=== PATIENT | female | born 1950 | race Caucasian/White ===

== ENCOUNTER 2021-07-20 11:15 | Emergency (ER) | payer MEDICARE, MEDICAID ==
[~2021-07-20] VITALS: Ht 167.6 cm; Wt 90.7 kg
[~2021-07-20 11:15] MED LIST: ALLOPURINOL 10100 M1 PO; AVAPRO300 MG PO; CLOBETASOL PROP60 G3 TOP; CLONAZEPAM 1 MG1 M1 PO; DALIRESP500 MCG PO; DOXYCYCLINE HYC50 MG PO; HYDROCODON-ACE1 EA12 PO; IRON325 PO; JANUMET XR 50-1 EAC1 PO; LASIX 20 MG TAB20 MG PO; LIPITOR 20 MG T20 M1 PO; MOBIC15 MG PO; NAPROSYN500 MG PO; NORVASC5 MG PO; PREDNISONE 20 M20 MG PO; PREDNISONE 5 MG5 M1 PO; PROTONIX40 M1 PO; PROVENTIL HFA6.7 G1 INH; REQUIP 1 MG TABL1 M1 PO; SYNTHROID175 MCG PO; TOPROL XL25 MG PO; TRAMADOL 50 MG50 MG PO
[2021-07-20] MEDS ORDERED: ASA81BEC PO (11:40)
[2021-07-20] MEDS ORDERED: LANTUS SUBQ (11:42)
[2021-07-20] MEDS ORDERED: HUMALOG100 UNIT/1 SUBQ (11:42)
[2021-07-20] MEDS ORDERED: LIDODERM1 EACH TOP (11:43)
[2021-07-20] MEDS ORDERED: MAGNESIUM250 M1 PO (11:43)
[2021-07-20] MEDS ORDERED: PROAIR HFA8.5 GM INH (11:44)
[2021-07-20] MEDS ORDERED: KLOR-CON 10 ER10 MEQ PO (11:44)
[2021-07-20] MEDS ORDERED: SPIRONOLACTONE25 MG PO (11:45)
[2021-07-20 11:59] LABS: ABSOLUTE BASOPHILS 0.1 thou/uL (0.0-0.2); ABSOLUTE EOSINOPHILS 0.4 thou/uL (0.0-0.7); ABSOLUTE LYMPHOCYTES 1.6 thou/uL (0.8-5.3); ABSOLUTE MONOCYTES 0.5 thou/uL (0.0-1.2); BASOPHILS 0.7 %; EOSINOPHILS 4.8 %; HEMATOCRIT 37.2 % (37.0-47.0); HEMOGLOBIN 12.4 gm/dL (12.0-15.0); LYMPHOCYTES 18.7 %; MCH 30.2 pg (26.0-34.0); MCHC 33.5 g/dL (28.0-37.0); MCV 90.2 fL (80.0-100.0); MONOCYTES 6.1 %; MPV 7.3 fl. (7.2-11.1); NUCLEATED RBCS 0 /100WBC; PLATELET COUNT* 280 thou/uL (150-400); POLYS 69.7 %; RBC 4.12 mil/uL (4.20-5.00); RDW-CV 16.1 % (10.5-14.5); WBC 8.5 thou/uL (4.0-11.0)
[2021-07-20 12:17] LABS: CALCIUM 8.6 mg/dL (8.5-10.1); POTASSIUM 4.2 mmol/L (3.5-5.1)
[2021-07-20 12:21] LABS: TOTAL BILIRUBIN 0.2 mg/dL (<0.1-1.0); TOTAL PROTEIN 6.8 g/dL (6.4-8.2)
[2021-07-20 12:41] LABS: URINE BILIRUBIN NEGATIVE (Negative); URINE BLOOD NEGATIVE (Negative); URINE CLARITY CLEAR; URINE COLOR YELLOW; URINE GLUCOSE-RANDOM 2+ (Negative); URINE KETONES NEGATIVE (Negative); URINE LEUKOCYTES-REFLEX NEGATIVE (Negative); URINE PROTEIN NEGATIVE (Negative); URINE SPECIFIC GRAVITY 1.025 (1.005-1.030); URINE UROBILINOGEN 0.2 E.U./dl (0.2-1.0)
[2021-07-20 12:45] LABS: URINE NITRITE-REFLEX POSITIVE (Negative)
[2021-07-20 12:49] LABS: SQUAMOUS NONE SEEN /LPF (0-3)
[2021-07-20 12:50] LABS: BACTERIA-REFLEX >30 Many /HPF (None Seen); CASTS None Seen /LPF (None Seen); MUCUS None Seen strn/LPF (None Seen); URINE RBC 0-2 Rare /HPF (0-2); URINE WBC-REFLEX 6-15 Few /HPF (0-5)
[2021-07-20 13:15] LABS: SGOT 14.4 U/L (15-37)
[2021-07-20 14:55] VITALS: BP 119/54
--- NOTE | 2021-07-20 15:03 | EKG ---
[place] [address] ELECTROCARDIOGRAM REPORT Name: ZAKI BORJAS Room: [facility]#: [id number] Admission: 07/20/21 Attend Phys: Discharge: 07/20/21 Date of : 50 Date of Service: 07/20/21 1152 Report #: [id number] THIS REPORT FOR: //name// [facility] ED Test Date: 2021-07-20 Test Time: 11:52:11 Pat Name: ZAKI BORJAS Department: Room: Gender: F Etl Bi Developer: : 1950 Requested By: Kyle Harrison Order Number: [id number] MD: Mitchell Barragan Measurements Intervals [place] Rate: 95 P: 54 PA: 141 QRS: 33 QRSD: 85 T: 51 QT: 336 QTc: 423 Interpretive Statements Sinus rhythm low voltage Probable left atrial enlargement Baseline wander in lead(s) II,III,aVF No previous ECG available for comparison Electronically Signed On 07-20-2021 15:03:05 CDT by Mitchell Barragan [email or web address] <ELECTRONICALLY SIGNED> By: Mitchell Barragan MD, [facility] 07/20/21 1503 1152 1152 Mitchell Barragan MD, [facility] /EPI
== END 2021-07-20 14:57 | disposition short-term general hospital (02) ==
LOC: M.ERS 11:15
PROVIDERS: Family Medicine
DX: I63.9 Cerebral infarction, unspecified (principal); Z20.822 Contact with and (suspected) exposure to COVID-19; R53.1 Weakness; E11.9 Type 2 diabetes mellitus without complications; J44.9 Chronic obstructive pulmonary disease, unspecified; I11.0 Hypertensive heart disease with heart failure; I50.9 Heart failure, unspecified; E78.00 Pure hypercholesterolemia, unspecified; E03.9 Hypothyroidism, unspecified; F17.210 Nicotine dependence, cigarettes, uncomplicated; Z79.82 Long term (current) use of aspirin; Z79.4 Long term (current) use of insulin; Z79.899 Other long term (current) drug therapy; Z87.891 Personal history of nicotine dependence

== ENCOUNTER 2021-09-27 18:20 | Emergency (ER) | payer MEDICARE, MEDICAID ==
[~2021-09-27] VITALS: Ht 167.6 cm; Wt 90.7 kg
--- NOTE | ~2021-09-27 | EMS ---
[address] [address] EMS Patient Care Report Name: ZAKI [facility]ORJAS [id number] Admission: 09/27/21 Attend Phys: Discharge: Date of : 50 Report #: [id number] THIS REPORT FOR: //name// Report Transmitted: 09/27/2021 18:13 EMS Care Summary [facility] Incident 22-0010 @ 09/27/2021 17:33 Incident Location [address] [place] [address] Patient ZAKI BORJAS Female, 71 Years 1950 Patient Address [address] [place] [address] Patient History Congestive Heart Failure (CHF),Chronic Obstructive Pulmonary Disease (COPD),Abdominal Aortic Aneurysm,Sleep Apnea,Narcolepsy, Patient Allergies No known allergies, Patient Medications Hydrocodone, Spironolactone, Allopurinol, Potassium, Metoprolol, Atorvastatin, Humalog, Magnesium Oxide, Levothyroxine, Lantus, Amitriptyline, Trazodone, Proair, Clonazepam, Flexeril, Lidocaine, ASA, Ropinirole, Chief Complaint Left calf pain Disposition Transported No Lights/[place] Dispatch Reason No Other Appropriate Choice Transported To [address] [address] EMS Patient Care Report Name: ZAKI BORJAS Room: [facility]#: [id number] Admission: 09/27/21 Attend Phys: Discharge: Date of : 50 Report #: [id number] Narrative Med 1 and Utility 1 were dispatched for a [age] year old female c/o left lower calf pain that started today. Upon arrival, patient was sitting on the couch with her bag packed. Patient c/o left leg pain upon assessment patient has redness, swelling & tenderness on her left calf. Patient rates her pain at a 9/10. Patient reported that she walk to the stretcher and we secured her via seatbelts and moved to the ambulance without incident. Med 1 went en route to [facility]. Patients vitals were monitored en route & remained stable. Patient is on Oxygen all the time due to COPD at 2 lpm via NC. I continued Oxygen on the patient through out transport. Patient reported she took her Hydrocodone prior to EMS arrival. Hospital report was given via radio with no questions or orders received or requested. Med 1 arrived at the hospital. Patient was moved into the ER Triage waiting room via stretcher. Patient was transferred to a wheelchair and patient report was given to ER Triage Nurse and patient care was transferred. Med 1 returned back into service. [id number] KShook Initial Vitals @17:48P: 84,R: 20,BP: 154/86,GCS: 15,SpO2: 98,Revised Trauma: 12, @18:02P: 86,R: 20,BP: 148/80,GCS: 15,SpO2: 98,Revised Trauma: 12, Impression Pain (Non-Traumatic) Timeline 17:33,Call Received 17:33,Dispatched 17:33,En Route 17:35,On Scene 17:36,At Patient 17:47,Depart Scene 17:48,BP: 154/86 M,PULSE: 84,RR: 20 R,SPO2: 98 Ox,ETCO2: ,BG: ,PAIN: ,GCS: 15, 18:02,BP: 148/80 M,PULSE: 86,RR: 20 R,SPO2: 98 Ox,ETCO2: ,BG: ,PAIN: ,GCS: 15, 18:08,At Destination 18:37,Call Closed 18:37,In District Disclaimer v1.1 Copyright 2021 [employer], [place] [address] EMS Patient Care Report Name: ZAKI BORJAS HYACINTH Room: [facility]#: [id number] Admission: 09/27/21 Attend Phys: Discharge: Date of : 50 Report #: [id number] This EMS Care Summary contains data elements from the applicable legal record (which may be displayed differently). It is designed to provide pertinent information for the following purposes: continuity of care, clinical quality, and state data reporting. The complete legal record is available to ED staff and administrators of the receiving hospital in [employer]'s Patient Tracker. All data is provided "as is."
--- NOTE | ~2021-09-27 | EMS ---
[address] [address] EMS Patient Care Report Name: ZAKI BORJAS [id number] Admission: 09/27/21 Attend Phys: Discharge: Date of : 50 Report #: [id number] THIS REPORT FOR: //name// Report Transmitted: 09/27/2021 19:15 EMS Care Summary [facility] Incident 22-0010 @ 09/27/2021 17:33 Incident Location [address] [place] [address] Patient ZAKI BORJAS Female, 71 Years 1950 Patient Address [address] [place] [address] Patient History Congestive Heart Failure (CHF),Chronic Obstructive Pulmonary Disease (COPD),Abdominal Aortic Aneurysm,Sleep Apnea,Narcolepsy, Patient Allergies No known allergies, Patient Medications Hydrocodone, Spironolactone, Allopurinol, Potassium, Metoprolol, Atorvastatin, Humalog, Magnesium Oxide, Levothyroxine, Lantus, Amitriptyline, Trazodone, Proair, Clonazepam, Flexeril, Lidocaine, ASA, Ropinirole, Chief Complaint Left calf pain Disposition Transported No Lights/[place] Dispatch Reason No Other Appropriate Choice Transported To [address] [address] EMS Patient Care Report Name: ZAKI BORJAS Room: [facility]#: [id number] Admission: 09/27/21 Attend Phys: Discharge: Date of : 50 Report #: [id number] Narrative Med 1 and Utility 1 were dispatched for a [age] year old female c/o left lower calf pain that started today. Upon arrival, patient was sitting on the couch with her bag packed. Patient c/o left leg pain upon assessment patient has redness, swelling & tenderness on her left calf. Patient rates her pain at a 9/10. Patient reported that she walk to the stretcher and we secured her via seatbelts and moved to the ambulance without incident. Med 1 went en route to [facility]. Patients vitals were monitored en route & remained stable. Patient is on Oxygen all the time due to COPD at 2 lpm via NC. I continued Oxygen on the patient through out transport. Patient reported she took her Hydrocodone prior to EMS arrival. Hospital report was given via radio with no questions or orders received or requested. Med 1 arrived at the hospital. Patient was moved into the ER Triage waiting room via stretcher. Patient was transferred to a wheelchair and patient report was given to ER Triage Nurse and patient care was transferred. Med 1 returned back into service. [id number] KShook Initial Vitals @17:48P: 84,R: 20,BP: 154/86,GCS: 15,SpO2: 98,Revised Trauma: 12, @18:02P: 86,R: 20,BP: 148/80,GCS: 15,SpO2: 98,Revised Trauma: 12, Impression Pain (Non-Traumatic) Timeline 17:33,Call Received 17:33,Dispatched 17:33,En Route 17:35,On Scene 17:36,At Patient 17:47,Depart Scene 17:48,BP: 154/86 M,PULSE: 84,RR: 20 R,SPO2: 98 Ox,ETCO2: ,BG: ,PAIN: ,GCS: 15, 18:02,BP: 148/80 M,PULSE: 86,RR: 20 R,SPO2: 98 Ox,ETCO2: ,BG: ,PAIN: ,GCS: 15, 18:08,At Destination 18:37,Call Closed 18:37,In District Disclaimer v1.1 Copyright 2021 [employer], [place] [address] EMS Patient Care Report Name: ZAKI BORJAS HYACINTH Room: [facility]#: [id number] Admission: 09/27/21 Attend Phys: Discharge: Date of : 50 Report #: [id number] This EMS Care Summary contains data elements from the applicable legal record (which may be displayed differently). It is designed to provide pertinent information for the following purposes: continuity of care, clinical quality, and state data reporting. The complete legal record is available to ED staff and administrators of the receiving hospital in [facility]'s Patient Tracker. All data is provided "as is."
[~2021-09-27 18:20] MED LIST changes: +ASA81BEC PO; +HUMALOG100 UNIT/1 SUBQ; +KLOR-CON 10 ER10 MEQ PO; +LANTUS SUBQ; +LIDODERM1 EACH TOP; +MAGNESIUM250 M1 PO; +PROAIR HFA8.5 GM INH; +SPIRONOLACTONE25 MG PO
[2021-09-27] MEDS ORDERED: AUGMENTIN 875-1 EACH PO (20:09)
[2021-09-27 20:18] VITALS: BP 140/66
== END 2021-09-27 20:18 | disposition home or self-care (01) ==
LOC: M.ERS 18:20
DX: S80.812A Abrasion, left lower leg, initial encounter (principal); L03.116 Cellulitis of left lower limb; L08.9 Local infection of the skin and subcutaneous tissue, unspecified; E11.9 Type 2 diabetes mellitus without complications; J44.9 Chronic obstructive pulmonary disease, unspecified; E78.00 Pure hypercholesterolemia, unspecified; I11.0 Hypertensive heart disease with heart failure; I50.9 Heart failure, unspecified; M19.90 Unspecified osteoarthritis, unspecified site; E03.9 Hypothyroidism, unspecified; Z86.711 Personal history of pulmonary embolism; Z79.899 Other long term (current) drug therapy; Z79.82 Long term (current) use of aspirin; Z79.4 Long term (current) use of insulin; Z91.09 Other allergy status, other than to drugs and biological substances; Z87.891 Personal history of nicotine dependence; W55.03XA Scratched by cat, initial encounter; Y93.89 Activity, other specified; Y92.89 Other specified places as the place of occurrence of the external cause; Y99.8 Other external cause status

== ENCOUNTER 2021-10-06 06:14 | Inpatient (IN) | payer MEDICARE, MEDICAID ==
[~2021-10-06] VITALS: Ht 167.6 cm; Wt 93.4 kg
[~2021-10-06 06:14] MED LIST changes: +AUGMENTIN 875-1 EACH PO; +SYNTHROID175 MC1 PO; -SYNTHROID175 MCG PO
[2021-10-06 06:26] VITALS: BP 118/88
[2021-10-06 06:53] LABS: BE 5.9 mmol/L (-2 to +3); pH 7.367 (7.340-7.450)
[2021-10-06 06:59] LABS: PCO2 58.7 mmHg (35.0-45.0); PO2 50.6 mmHg (75.0-100.0)
[2021-10-06 07:00] LABS: ABSOLUTE LYMPHOCYTES 1.3 thou/uL (0.8-5.3); HEMOGLOBIN 12.3 gm/dL (12.0-15.0); NUCLEATED RBCS 0 /100WBC; RBC 4.16 mil/uL (4.20-5.00)
[2021-10-06 07:02] LABS: ABSOLUTE BASOPHILS 0.1 thou/uL (0.0-0.2); ABSOLUTE EOSINOPHILS 0.3 thou/uL (0.0-0.7); ABSOLUTE MONOCYTES 0.5 thou/uL (0.0-1.2); ABSOLUTE NEUTROPHILS 6.3 thou/uL (1.6-8.1); BASOPHILS 0.6 %; EOSINOPHILS 3.1 %; HEMATOCRIT 37.4 % (37.0-47.0); MCH 29.6 pg (26.0-34.0); MCHC 32.9 g/dL (28.0-37.0); MCV 89.9 fL (80.0-100.0); MONOCYTES 5.7 %; MPV 7.4 fl. (7.2-11.1); PLATELET COUNT* 225 thou/uL (150-400); POLYS 74.6 %; RDW-CV 14.7 % (10.5-14.5); WBC 8.4 thou/uL (4.0-11.0)
[2021-10-06 07:08] LABS: CALCIUM 8.4 mg/dL (8.5-10.1); POTASSIUM 4.2 mmol/L (3.5-5.1)
[2021-10-06 07:12] LABS: TOTAL BILIRUBIN 0.3 mg/dL (<0.1-1.0); TOTAL PROTEIN 6.6 g/dL (6.4-8.2)
[2021-10-06 07:21] LABS: INFLUENZA A ANTIGEN Negative (Negative); INFLUENZA B ANTIGEN Negative (Negative)
--- NOTE | 2021-10-06 09:29 | EKG ---
[place] [address] ELECTROCARDIOGRAM REPORT Name: ZAKI BORJAS Room: [facility]#: [id number] Admission: 10/06/21 Attend Phys: Discharge: Date of : 50 Date of Service: 10/06/[address] Report #: [id number] THIS REPORT FOR: //name// [facility] ED Test Date: 2021-10-06 Test Time: 06:24:06 Pat Name: ZAKI BORJAS Department: Room: Gender: Prototype Engineer Manager: : 1950 Requested By: Brittany Benavidez Order Number: [id number] MD: Nilay Dove Measurements Intervals [place] Rate: 112 P: 69 [place]: 141 QRS: 41 QRSD: 86 T: 72 QT: 332 QTc: 453 Interpretive Statements Sinus tachycardia Probable left atrial enlargement Low voltage, precordial leads Compared to ECG 07/20/2021 11:52:11 Sinus rate has increased Electronically Signed On 10-06-2021 9:29:23 CLUTCH SPECIALIST by Nilay Dove [email or web address] <ELECTRONICALLY SIGNED> By: Nilay Dove MD, [facility] 10/06/21 0929 0624 Nilay Dove MD, [facility] /EPI
[2021-10-06 17:20] VITALS: BP 152/68
[2021-10-06 22:27] VITALS: BP 174/75
[2021-10-07 02:35] VITALS: BP 174/75
[2021-10-07 06:24] VITALS: BP 121/52
[2021-10-07 10:15] LABS: HEMOGLOBIN 12.8 gm/dL (12.0-15.0); MCH 29.7 pg (26.0-34.0); MCHC 31.9 g/dL (28.0-37.0); MCV 92.9 fL (80.0-100.0); MPV 7.8 fl. (7.2-11.1); NUCLEATED RBCS 0 /100WBC; PLATELET COUNT* 235 thou/uL (150-400); RBC 4.31 mil/uL (4.20-5.00); RDW-CV 14.9 % (10.5-14.5); WBC 8.3 thou/uL (4.0-11.0)
[2021-10-07 10:30] LABS: ALBUMIN 3.1 g/dL (3.4-5.0); CALCIUM 8.8 mg/dL (8.5-10.1); CREATININE 1.4 mg/dL (0.6-1.3); MAGNESIUM 2.1 mg/dL (1.8-2.4); POTASSIUM 4.6 mmol/L (3.5-5.1); TOTAL BILIRUBIN 0.3 mg/dL (<0.1-1.0); TOTAL PROTEIN 7.1 g/dL (6.4-8.2)
[2021-10-07 10:53] LABS: ABSOLUTE LYMPHOCYTES 0.5 thou/uL (0.8-5.3); ABSOLUTE MONOCYTES 0.1 thou/uL (0.0-1.2); ABSOLUTE NEUTROPHILS 7.7 thou/uL (1.6-8.1); PLATELET ESTIMATE ADEQUATE
[2021-10-07 11:03] VITALS: BP 130/68
[2021-10-07 11:34] LABS: PO2 71.9 mmHg (75.0-100.0); pH 7.388 (7.340-7.450)
[2021-10-07 11:38] LABS: PCO2 53.1 mmHg (35.0-45.0)
[2021-10-07 14:29] VITALS: BP 120/65
[2021-10-07 18:24] VITALS: BP 120/65
[2021-10-07 20:00] VITALS: BP 143/69
[2021-10-08] VITALS: BP 153/90
[2021-10-08 04:00] VITALS: BP 122/81
[2021-10-08 07:20] LABS: ABSOLUTE LYMPHOCYTES 0.8 thou/uL (0.8-5.3); ABSOLUTE MONOCYTES 0.3 thou/uL (0.0-1.2); ABSOLUTE NEUTROPHILS 11.9 thou/uL (1.6-8.1); BASOPHILS 0.1 %; HEMATOCRIT 39.2 % (37.0-47.0); HEMOGLOBIN 12.5 gm/dL (12.0-15.0); LYMPHOCYTES 6.1 %; MCHC 31.8 g/dL (28.0-37.0); MCV 91.2 fL (80.0-100.0); MONOCYTES 2.1 %; MPV 7.6 fl. (7.2-11.1); NUCLEATED RBCS 0 /100WBC; PLATELET COUNT* 264 thou/uL (150-400); POLYS 91.7 %; RDW-CV 14.9 % (10.5-14.5); WBC 12.9 thou/uL (4.0-11.0)
[2021-10-08 07:32] LABS: MAGNESIUM 2.2 mg/dL (1.8-2.4); PHOSPHORUS* 2.9 mg/dL (2.5-4.9); POTASSIUM 4.3 mmol/L (3.5-5.1); TOTAL BILIRUBIN 0.2 mg/dL (<0.1-1.0); TOTAL PROTEIN 6.4 g/dL (6.4-8.2)
[2021-10-08] MEDS ORDERED: PREDNISONE 10 M10 MG PO (09:09)
[2021-10-08] MEDS ORDERED: LEVOFLOXACIN500 MG PO (09:09)
[2021-10-08 09:30] LABS: NT-PRO BRAIN NAT PEPTIDE 314 pg/mL (<300)
[2021-10-08 09:45] VITALS: BP 134/72
[2021-10-08 13:05] VITALS: BP 134/72
[2021-10-08 13:30] VITALS: BP 134/72
[2021-10-09 07:08] LABS: GLYCOHEMOGLOBIN (HGB A1C) 10.1 % (4.8-5.6)
== END 2021-10-08 13:32 | disposition home health service (06) | DRG 189 ==
LOC: M.ERS 06:14 → M.TBA-ER 10:26
PROVIDERS: Personal Emergency Response Attendant; ADMIT Internal Medicine; ATTEND Internal Medicine
DX: J96.01 Acute respiratory failure with hypoxia (principal); J44.1 Chronic obstructive pulmonary disease with (acute) exacerbation; I13.0 Hypertensive heart and chronic kidney disease with heart failure and stage 1 through stage 4 chronic kidney disease, or unspecified chronic kidney disease; Z20.822 Contact with and (suspected) exposure to COVID-19; E78.00 Pure hypercholesterolemia, unspecified; I50.9 Heart failure, unspecified; D32.0 Benign neoplasm of cerebral meninges; E03.9 Hypothyroidism, unspecified; G89.29 Other chronic pain; M54.9 Dorsalgia, unspecified; E11.22 Type 2 diabetes mellitus with diabetic chronic kidney disease; J96.02 Acute respiratory failure with hypercapnia; E11.65 Type 2 diabetes mellitus with hyperglycemia; N18.30 Chronic kidney disease, stage 3 unspecified; I71.4 Abdominal aortic aneurysm, without rupture; E78.5 Hyperlipidemia, unspecified; Z79.4 Long term (current) use of insulin; Z86.711 Personal history of pulmonary embolism; Z87.891 Personal history of nicotine dependence; Z88.8 Allergy status to other drugs, medicaments and biological substances; Z82.49 Family history of ischemic heart disease and other diseases of the circulatory system

== ENCOUNTER 2021-11-04 13:48 | Inpatient (IN) | payer MEDICARE, MEDICAID ==
[~2021-11-04] VITALS: Ht 167.6 cm; Wt 93.4 kg
[~2021-11-04 13:48] MED LIST changes: -KLOR-CON 10 ER10 MEQ PO; +KLOR-CON 1010 MEQ PO; +LEVOFLOXACIN500 MG PO; +PREDNISONE 10 M10 MG PO
[2021-11-04] MEDS ORDERED: LANTUS SUBQ (14:07)
[2021-11-04 15:07] LABS: ABSOLUTE EOSINOPHILS 0.1 thou/uL (0.0-0.7); ABSOLUTE LYMPHOCYTES 1.2 thou/uL (0.8-5.3); ABSOLUTE MONOCYTES 0.3 thou/uL (0.0-1.2); ABSOLUTE NEUTROPHILS 4.9 thou/uL (1.6-8.1); BASOPHILS 0.3 %; EOSINOPHILS 2.2 %; HEMATOCRIT 36.5 % (37.0-47.0); HEMOGLOBIN 11.8 gm/dL (12.0-15.0); LYMPHOCYTES 18.7 %; MCH 29.3 pg (26.0-34.0); MCHC 32.3 g/dL (28.0-37.0); MCV 90.7 fL (80.0-100.0); MONOCYTES 5.2 %; MPV 7.4 fl. (7.2-11.1); NUCLEATED RBCS 0 /100WBC; PLATELET COUNT* 218 thou/uL (150-400); POLYS 73.6 %; RBC 4.03 mil/uL (4.20-5.00); RDW-CV 15.2 % (10.5-14.5); WBC 6.7 thou/uL (4.0-11.0)
[2021-11-04 15:18] LABS: CALCIUM 8.3 mg/dL (8.5-10.1); CREATININE 1.3 mg/dL (0.6-1.3)
[2021-11-04 15:29] LABS: MAGNESIUM 1.8 mg/dL (1.8-2.4); TOTAL BILIRUBIN 0.2 mg/dL (<0.1-1.0)
[2021-11-04 16:58] LABS: URINE BILIRUBIN NEGATIVE (Negative); URINE BLOOD NEGATIVE (Negative); URINE COLOR YELLOW; URINE GLUCOSE-RANDOM 2+ (Negative); URINE KETONES NEGATIVE (Negative); URINE LEUKOCYTES-REFLEX TRACE (Negative); URINE NITRITE-REFLEX POSITIVE (Negative); URINE PROTEIN NEGATIVE (Negative); URINE SPECIFIC GRAVITY >= 1.030 (1.005-1.030); URINE UROBILINOGEN 0.2 E.U./dl (0.2-1.0)
[2021-11-04 16:59] LABS: URINE CLARITY SL HAZY
[2021-11-04 17:04] LABS: BACTERIA-REFLEX >30 Many /HPF (None Seen); HYALINE CASTS 0-3 Few /LPF (None Seen); SQUAMOUS >10 Many /LPF (0-3)
[2021-11-04 17:05] LABS: CRYSTALS None Seen /LPF (None Seen); URINE RBC None Seen /HPF (0-2)
[2021-11-04 17:06] LABS: MUCUS None Seen strn/LPF (None Seen)
[2021-11-04 21:00] VITALS: BP 146/89
[2021-11-04 23:06] VITALS: BP 146/89
[2021-11-04 23:56] VITALS: BP 171/90
[2021-11-05 04:00] VITALS: BP 180/104
[2021-11-05 06:34] VITALS: BP 177/92
[2021-11-05 07:55] VITALS: BP 164/95
[2021-11-05 08:08] LABS: HEMOGLOBIN 12.3 gm/dL (12.0-15.0); MCH 29.4 pg (26.0-34.0); MCHC 32.5 g/dL (28.0-37.0); MCV 90.7 fL (80.0-100.0); MPV 7.8 fl. (7.2-11.1); NUCLEATED RBCS 0 /100WBC; PLATELET COUNT* 256 thou/uL (150-400); RBC 4.19 mil/uL (4.20-5.00); RDW-CV 14.8 % (10.5-14.5); WBC 8.9 thou/uL (4.0-11.0)
[2021-11-05 08:27] LABS: CALCIUM 8.7 mg/dL (8.5-10.1); CREATININE 1.2 mg/dL (0.6-1.3); POTASSIUM 4.7 mmol/L (3.5-5.1)
[2021-11-05 09:16] LABS: ABSOLUTE LYMPHOCYTES 1.1 thou/uL (0.8-5.3); ABSOLUTE MONOCYTES 0.1 thou/uL (0.0-1.2); ABSOLUTE NEUTROPHILS 7.7 thou/uL (1.6-8.1)
[2021-11-05 09:17] LABS: HYPOCHROMASIA Occasional; PLATELET ESTIMATE ADEQUATE
--- NOTE | 2021-11-05 11:24 | EKG ---
[place] [address] ELECTROCARDIOGRAM REPORT Name: ZAKI BORJAS Room: [address] ADM IN .R.#: [id number] Admission: 11/04/21 Attend Phys: Lewis Alston Discharge: Date of : 50 Date of Service: 11/04/21 1505 Report #: [id number] THIS REPORT FOR: //name// [facility] ED Test Date: 2021-11-04 Test Time: 15:05:29 Pat Name: ZAKI BORJAS Department: Room: [facility] Gender: F Dietitian Teacher: KF : 1950 Requested By: Dustin Feng Order Number: [id number] MD: Nilay Dove Measurements Intervals [place] Rate: 84 P: 69 SC: 148 QRS: 19 QRSD: 88 T: 60 QT: 359 QTc: 425 Interpretive Statements Sinus rhythm Low voltage, precordial leads Compared to ECG 10/06/2021 06:24:06 Sinus tachycardia no longer present Electronically Signed On 11-05-2021 11:24:14 CAREER DEVELOPER by Nilay Dove [email or web address] <ELECTRONICALLY SIGNED> By: Nilay Dove MD, [facility] 11/05/21 1124 1505 1505 Nilay Dove MD, [facility] /EPI
[2021-11-05 12:00] VITALS: BP 149/76
--- NOTE | 2021-11-05 15:21 | 2DMMODE ---
[place] [address] 2 D/M-MODE ECHOCARDIOGRAM Name: ZAKI BORJAS HYACINTH Room: [address] IN [facility]#: [id number] Admission: 11/04/21 Attend Phys: Lewis Alston Discharge: Date of : 50 Date of Service: 11/05/21 1520 Report #: [id number] THIS REPORT FOR: cc: Sue Bolton Christine L. DO Holkins,Nilay Marcus MD [facility] ~ APPROVED REPORT Study performed: 11/05/2021 09:07:45 EXAM: Comprehensive 2D, Doppler, and color-flow Echocardiogram Patient Location: In-Patient Room #: [facility] Status: routine BSA: 2.02 HR: 86 bpm BP: 164/95 mmHg Rhythm: NSR Other Information Study Quality: Good Indications Chest Pain 2D Dimensions IVSd: 12.23 (7-11mm) LVOT Diam: 19.28 (18-24mm) LVDd: 51.23 mm PWd: 11.08 (7-11mm) Ascending Ao: 28.48 (22-36mm) LVDs: 28.29 (25-40mm) Aortic Root: 28.94 mm Volumes Left Atrial Volume (Systole) LA ESV Index: 22.70 mL/m2 Aortic Valve AoV Peak Igor.: 1.88 m/s AO Peak Gr.: 14.17 mmHg LVOT Max P.42 mmHg AO Mean Gr.: 7.83 mmHg LVOT Mean P.34 mmHg LVOT Max V: 1.16 m/s AO V2 VTI: 38.96 cm LVOT Mean V: 0.69 m/s JEFFERSON (VTI): 1.96 cm2 LVOT V1 VTI: 26.19 [place] [address] 2 D/M-MODE ECHOCARDIOGRAM Name: ZAKI BORJAS Room: [address] IN ..#: [id number] Admission: 11/04/21 Attend Phys: Lewis Alston Discharge: Date of : 50 Date of Service: 11/05/21 1520 Report #: [id number] Mitral Valve E/A Ratio: 0.86 MV Decel. Time: 178.19 ms MV E Max Igor.: 1.12 m/s MV PHT: 51.67 ms MVA (PHT): 4.26 cm2 TDI E/Lateral E': 16.00 E/Medial E': 12.44 Medial E' Igor.: 0.09 m/s Lateral E' Igor.: 0.07 m/s Pulmonary Valve PV Peak Igor.: 0.94 m/s PV Peak Gr.: 3.52 mmHg Left Ventricle The left ventricle is normal size. There is normal LV segmental wall motion. There is normal left ventricular wall thickness. Left ventricular systolic function is normal. The left ventricular ejection fraction is within the normal range. LVEF is 60-65%. Grade I - abnormal relaxation pattern. Right Ventricle The right ventricle is normal size. The right ventricular systolic function is normal. Atria The left atrium size is normal. The right atrium size is normal. Aortic Valve Mild aortic valve sclerosis. No aortic regurgitation is present. No hemodynamically significant valvular aortic stenosis. Mitral Valve Mild mitral annular calcification. Trace mitral regurgitation. No evidence of mitral valve stenosis. Tricuspid Valve The tricuspid valve is normal in structure. Unable to assess PA pressure. Trace tricuspid regurgitation. Pulmonic Valve The pulmonary valve is normal in structure. There is no [place]mon[place] [address] 2 D/M-MODE ECHOCARDIOGRAM Name: BORJASZAKI HYACINTH Room: [address] IN [facility]#: [id number] Admission: 11/04/21 Attend Phys: Lewis Alston Discharge: Date of : 50 Date of Service: 11/05/21 1520 Report #: [id number] Great Vessels The aortic root is normal in size. IVC is normal in size and collapses >50% with inspiration. Pericardium There is no pericardial effusion. <Conclusion> The left ventricle is normal size. There is normal left ventricular wall thickness. Left ventricular systolic function is normal. The left ventricular ejection fraction is within the normal range. LVEF is 60-65%. Grade I - abnormal relaxation pattern. The right ventricle is normal size. The left atrium size is normal. Mild aortic valve sclerosis. No aortic regurgitation is present. No hemodynamically significant valvular aortic stenosis. Mild mitral annular calcification. Trace mitral regurgitation. The tricuspid valve is normal in structure. IVC is normal in size and collapses >50% with inspiration. There is no pericardial effusion. There is normal LV segmental wall motion. <ELECTRONICALLY SIGNED> By: Nilay Dove MD, FACC 11/05/21 1520 1520 1520 Nilay Dove MD, FACC /INF
[2021-11-05 16:00] VITALS: BP 120/71
[2021-11-05 20:00] VITALS: BP 130/80
[2021-11-06 00:38] VITALS: BP 116/60
[2021-11-06 04:00] VITALS: BP 138/81
[2021-11-06 04:32] LABS: CALCIUM 9.2 mg/dL (8.5-10.1); CREATININE 1.1 mg/dL (0.6-1.3); POTASSIUM 4.9 mmol/L (3.5-5.1)
[2021-11-06 08:00] VITALS: BP 148/85
--- NOTE | 2021-11-06 11:03 | EKG ---
[place] [address] ELECTROCARDIOGRAM REPORT Name: ZAKI BORJAS Room: [address] ADM IN .R.#: [id number] Admission: 11/04/21 Attend Phys: Lewis Alston Discharge: Date of : 50 Date of Service: 11/06/21 0658 Report #: [id number] THIS REPORT FOR: //name// [facility] Test Date: 2021-11-06 Test Time: 06:58:32 Pat Name: ZAKI BORJAS Department: Room: [address] [place] [address] Gender: F Hospital Cleaning Specialist: BXIONG : 1950 Requested By: Kelly Ritchie Order Number: [id number] MD: Nilay Dove Measurements Intervals [place] Rate: 81 P: 64 GA: 143 QRS: 47 QRSD: 90 T: 58 QT: 358 QTc: 416 Interpretive Statements Sinus rhythm Probable left atrial enlargement Compared to ECG 11/04/2021 15:05:29 No significant changes Electronically Signed On 11-06-2021 11:02:56 WHISKEY REGAUGER by Nilay Dove [email or web address] <ELECTRONICALLY SIGNED> By: Nilay Dove MD, [facility] 11/06/21 1102 0658 0658 Nilay Dove MD, [facility] /EPI
[2021-11-06 11:37] VITALS: BP 118/89
[2021-11-06 16:16] VITALS: BP 125/66
[2021-11-06 20:00] VITALS: BP 133/68
[2021-11-07] VITALS: BP 148/88
[2021-11-07 04:00] VITALS: BP 138/73
[2021-11-07 08:00] VITALS: BP 145/84
[2021-11-07 12:00] VITALS: BP 138/78
[2021-11-07 16:00] VITALS: BP 129/65
[2021-11-07 20:00] VITALS: BP 129/61
[2021-11-08] VITALS: BP 142/92
[2021-11-08 04:00] VITALS: BP 169/75
[2021-11-08 07:56] VITALS: BP 158/93
[2021-11-08 12:00] VITALS: BP 134/66
[2021-11-08 12:34] VITALS: BP 158/93
[2021-11-08 13:07] VITALS: BP 158/93
== END 2021-11-08 23:10 | disposition home health service (06) | DRG 189 ==
LOC: M.ERS 13:48 → M.TBA-ER 16:59 → M.ORTHSURG 16:59
PROVIDERS: Physician Assistant Medical; ADMIT Internal Medicine; ATTEND Internal Medicine
PROC: 5A0935A Assistance with Respiratory Ventilation, Less than 24 Consecutive Hours, High Flow/Velocity Cannula (ICD-10-PCS; principal; 2021-11-07)
DX: J96.02 Acute respiratory failure with hypercapnia (principal); J44.1 Chronic obstructive pulmonary disease with (acute) exacerbation; N30.00 Acute cystitis without hematuria; E44.1 Mild protein-calorie malnutrition; J96.01 Acute respiratory failure with hypoxia; Z20.822 Contact with and (suspected) exposure to COVID-19; E78.00 Pure hypercholesterolemia, unspecified; I50.9 Heart failure, unspecified; G47.33 Obstructive sleep apnea (adult) (pediatric); E03.9 Hypothyroidism, unspecified; M54.9 Dorsalgia, unspecified; G89.29 Other chronic pain; I11.0 Hypertensive heart disease with heart failure; M54.10 Radiculopathy, site unspecified; E11.65 Type 2 diabetes mellitus with hyperglycemia; E66.9 Obesity, unspecified; Z79.4 Long term (current) use of insulin; Z86.711 Personal history of pulmonary embolism; Z87.891 Personal history of nicotine dependence; Z68.33 Body mass index [BMI] 33.0-33.9, adult

== ENCOUNTER 2021-11-18 15:23 | Inpatient (IN) | payer MEDICARE, MEDICAID ==
[~2021-11-18] VITALS: Ht 167.6 cm; Wt 106.6 kg
--- NOTE | ~2021-11-18 | EMS ---
[address] [address] EMS Patient Care Report Name: ZAKI BORJAS Room: [address] IN [facility]#: [id number] Admission: 11/18/21 Attend Phys: Naseem Short Discharge: Date of : [birth year] Report #: [id number] THIS REPORT FOR: //name// Report Transmitted: 11/18/2021 19:26 EMS Care Summary [place] [facility] Incident [id number] @ 11/18/2021 14:40 Incident Location [address] [place] [address] Patient ZAKI BORJAS Female, 71 Years 1950 Patient Address [address] [place] [address] Patient History Congestive Heart Failure (CHF),Chronic Obstructive Pulmonary Disease (COPD),Diabetes,Neuropathy,Sleep Apnea, Patient Allergies No known allergies, Patient Medications Ropinirole, Allopurinol, Spironolactone, Magnesium Oxide, Atorvastatin, Aspirin, Amitriptyline, Trazodone, Metaproterenol, Levothyroxine, Potassium, Lidocaine, Chief Complaint bi-lat lower leg pain Disposition Transported No Lights/[place] Dispatch Reason No Other Appropriate Choice Transported To [address] [address] EMS Patient Care Report Name: ZAKI BORJAS Room: [address] IN [facility]#: [id number] Admission: 11/18/21 Attend Phys: Naseem Short Discharge: Date of : [birth year] Report #: [id number] Narrative Dispatched to a residence for 71y/o female with leg pain. Upon arrival pt. was sitting on as couch wearing O2 via NC, A&Ox4 c/o bi-lateral lower leg pain, redness and swelling. Pt. stated that this started 4 days ago and has steadily progressed. Pt. has history of poorly controlled DM. Pt. stated that her BG has been running high for approx. 2 weeks. Pt. O2 was removed for transfer to ambulance and pt. O2 sat. was 90% on RA with wheezing in upper gould. Duoneb was administered and NC replaced at 4lpm bring O2 sat. to 98% with work of breathing returning to normal. IV attempt was not successful. Pt. was transported to [place] for emergency services. Initial Vitals @15:18P: 111,R: 20,BP: 163/85,GCS: 15,SpO2: 99,Revised Trauma: 12, @15:05P: 109,R: 20,BP: 140/88,GCS: 15,SpO2: 100,Revised Trauma: 12, @14:50P: 110,R: 20,BP: 150/85,GCS: 15,Glucose: 444,SpO2: 90,Revised Trauma: 12, Impression Extremity Pain Procedures @15:05 IV Therapy - Saline Lock cc (20 ga) Site: Antecubital-Left Response: UnchangedFailed @PTAOxygen FlowRate: 4 Device: Nasal Cannula (NC) Response: UnchangedSucceeded @14:55 Duoneb - 3.5 Milligrams (mg) - Non-Rebreather Mask Response: Improved Timeline WRAPPER LAYER AND EXAMINER SOFT WORK,Oxygen FlowRate: 4 Device: Nasal Cannula (NC) Response: UnchangedSucceeded, 14:38,Call Received 14:40,Dispatched 14:40,En Route 14:42,Initial Responder On Scene 14:42,On Scene 14:44,At Patient 14:50,BP: 150/85 M,PULSE: 110,RR: 20 R,SPO2: 90 Ox,ETCO2: ,B,PAIN: ,GCS: 15, 14:55,Duoneb - 3.5 Milligrams (mg) - Non-Rebreather Mask,Response: Improved 14:59,Depart Scene 15:05,IV Therapy - Saline Lock cc 20 ga Site: Antecubital-Left,Response: UnchangedFailed, 15:05,BP: 140/88 M,PULSE: 109,RR: 20 R,SPO2: 100 Ox,ETCO2: ,BG: ,PAIN: ,GCS: 15, 15:18,BP: 163/85 M,PULSE: 111,RR: 20 R,SPO2: 99 Ox,ETCO2: ,BG: ,PAIN: ,GCS: 15, 15:20,At Destination 15:22,[place] [address] EMS Patient Care Report Name: ZAKI BORJAS Room: [address] IN .R.#: [id number] Admission: 11/18/21 Attend Phys: Naseem Short Discharge: Date of : 50 Report #: [id number] 15:30,Call Closed 15:49,In District Disclaimer v1.1 Copyright 2021 [employer] This EMS Care Summary contains data elements from the applicable legal record (which may be displayed differently). It is designed to provide pertinent information for the following purposes: continuity of care, clinical quality, and state data reporting. The complete legal record is available to ED staff and administrators of the receiving hospital in [employer]'s Patient Tracker. All data is provided "as is."
[2021-11-18 15:25] VITALS: BP 158/82
--- NOTE | 2021-11-18 15:40 | EKG ---
[place] [address] ELECTROCARDIOGRAM REPORT Name: ZAKI BORJAS Room: [facility].#: [id number] Admission: Attend Phys: Discharge: Date of : 50 Date of Service: 11/18/21 1530 Report #: [id number] THIS REPORT FOR: //name// [facility] ED Test Date: 2021-11-18 Test Time: 15:30:48 Pat Name: AZKI BORJAS Department: Room: Gender: F Roofing Supervisor: TDS : 1950 Requested By: Ninfa Lucas Order Number: [id number] MD: Nilay Dove Measurements Intervals [place] Rate: 103 P: 0 UT: 56 QRS: 46 QRSD: 80 T: QT: 349 QTc: 457 Interpretive Statements Sinus tachycardia with occasional PACs Probable left atrial enlargement Low voltage, precordial leads Abnormal R-wave progression, early transition Marked baseline artifact Compared to ECG 11/06/2021 06:58:32 Low QRS voltage now present Sinus rate has increased Electronically Signed On 11-18-2021 15:39:40 INVESTIGATOR UTILITY BILL COMPLAINTS by Nilay Dove [email or web address] <ELECTRONICALLY SIGNED> By: Nilay Dove MD, [facility] 11/18/21 1539 1530 1530 Nilay Dove MD, [facility] /EPI
[2021-11-18 15:43] LABS: ABSOLUTE EOSINOPHILS 0.1 thou/uL (0.0-0.7); ABSOLUTE LYMPHOCYTES 1.1 thou/uL (0.8-5.3); ABSOLUTE MONOCYTES 0.5 thou/uL (0.0-1.2); ABSOLUTE NEUTROPHILS 5.5 thou/uL (1.6-8.1); BASOPHILS 0.4 %; EOSINOPHILS 1.4 %; HEMATOCRIT 36.4 % (37.0-47.0); HEMOGLOBIN 11.9 gm/dL (12.0-15.0); MCH 29.9 pg (26.0-34.0); MCHC 32.7 g/dL (28.0-37.0); MCV 91.3 fL (80.0-100.0); MONOCYTES 7.2 %; MPV 7.4 fl. (7.2-11.1); NUCLEATED RBCS 0 /100WBC; PLATELET COUNT* 208 thou/uL (150-400); RBC 3.99 mil/uL (4.20-5.00); RDW-CV 15.2 % (10.5-14.5); WBC 7.3 thou/uL (4.0-11.0)
[2021-11-18 15:53] LABS: CALCIUM 8.6 mg/dL (8.5-10.1); CREATININE 1.2 mg/dL (0.6-1.3); POTASSIUM 4.2 mmol/L (3.5-5.1)
[2021-11-18 16:04] LABS: TOTAL BILIRUBIN 0.3 mg/dL (<0.1-1.0); TOTAL PROTEIN 6.5 g/dL (6.4-8.2)
[2021-11-18 16:59] LABS: URINE BILIRUBIN NEGATIVE (Negative); URINE BLOOD NEGATIVE (Negative); URINE CLARITY CLEAR; URINE COLOR YELLOW; URINE GLUCOSE-RANDOM 3+ (Negative); URINE KETONES NEGATIVE (Negative); URINE LEUKOCYTES-REFLEX NEGATIVE (Negative); URINE NITRITE-REFLEX NEGATIVE (Negative); URINE PROTEIN NEGATIVE (Negative); URINE SPECIFIC GRAVITY >= 1.030 (1.005-1.030); URINE UROBILINOGEN 0.2 E.U./dl (0.2-1.0)
[2021-11-18 20:13] VITALS: BP 117/68
[2021-11-18 21:15] VITALS: BP 124/80
[2021-11-18] MEDS ORDERED: MGO400 MG PO (23:48)
[2021-11-18] MEDS ORDERED: AMITRIPTYLINE H25 M3 PO (23:54)
[2021-11-18] MEDS ORDERED: FLEXERIL PO (23:58)
[2021-11-19] VITALS (7 sets, daily range): BP systolic 123–168; BP diastolic 78–109
[2021-11-19] MEDS ORDERED: TORSEMIDE20 MG PO (00:04)
[2021-11-19] MEDS ORDERED: TRAZODONE HCL100 MG PO (00:07)
[2021-11-19] MEDS ORDERED: LIDODERM1 EACH TRANSDERM (00:11)
[2021-11-20] VITALS (7 sets, daily range): BP systolic 133–168; BP diastolic 70–94
[2021-11-20 11:33] LABS: POTASSIUM 4.7 mmol/L (3.5-5.1)
[2021-11-20 11:36] LABS: MAGNESIUM 1.9 mg/dL (1.8-2.4)
[2021-11-21] VITALS: BP 140/79
[2021-11-21 04:50] VITALS: BP 134/71
[2021-11-21 05:21] LABS: HEMATOCRIT 33.3 % (37.0-47.0); HEMOGLOBIN 10.9 gm/dL (12.0-15.0); MCH 30.2 pg (26.0-34.0); MCHC 32.7 g/dL (28.0-37.0); MCV 92.3 fL (80.0-100.0); MPV 7.8 fl. (7.2-11.1); NUCLEATED RBCS 0 /100WBC; PLATELET COUNT* 194 thou/uL (150-400); RBC 3.61 mil/uL (4.20-5.00); RDW-CV 15.4 % (10.5-14.5); WBC 7.6 thou/uL (4.0-11.0)
[2021-11-21 05:38] LABS: CALCIUM 8.2 mg/dL (8.5-10.1); CREATININE 0.8 mg/dL (0.6-1.3); POTASSIUM 4.5 mmol/L (3.5-5.1)
[2021-11-21 07:45] VITALS: BP 132/73
[2021-11-21 07:55] LABS: ABSOLUTE LYMPHOCYTES 1.3 thou/uL (0.8-5.3); ABSOLUTE MONOCYTES 0.2 thou/uL (0.0-1.2); ABSOLUTE NEUTROPHILS 6.2 thou/uL (1.6-8.1); METAMYELOCYTES 1 %
[2021-11-21 07:56] LABS: PLATELET ESTIMATE ADEQUATE
[2021-11-21] MEDS ORDERED: CLEOCIN HCL300 MG PO (09:57)
[2021-11-21] MEDS ORDERED: PREDNISONE 10 M10 MG PO (09:57)
[2021-11-21] MEDS ORDERED: HYDROCODON-ACE1 EA12 PO (10:28)
[2021-11-21 11:48] VITALS: BP 149/91
[2021-11-21 14:39] VITALS: BP 160/95
--- NOTE | 2021-11-22 09:47 | EKG ---
[place] [address] ELECTROCARDIOGRAM REPORT Name: ZAKI BORJAS Room: [address] DIS IN ..#: [id number] Admission: 11/18/21 Attend Phys: Lewis Alston Discharge: 11/21/21 Date of : [birth year] Date of Service: 11/20/21 0644 Report #: [id number] THIS REPORT FOR: //name// [facility] Test Date: 2021-11-20 Test Time: 06:44:37 Pat Name: ZAKI BORJAS Department: Room: [address] Gender: F Volcanologist: ZULMA : 1950 Requested By: Kit Gold Order Number: [id number] MD: Mitchell Barragan Measurements Intervals [place] Rate: 90 P: 70 AL: 147 QRS: 45 QRSD: 89 T: 55 QT: 368 QTc: 451 Interpretive Statements Sinus rhythm Compared to ECG 11/18/2021 15:30:48 Sinus tachycardia no longer present Electronically Signed On 11-22-2021 9:47:25 TAX SPECIALIST by Mitchell Barragan [email or web address] <ELECTRONICALLY SIGNED> By: Mitchell Barragan MD, [facility] 11/22/21 0947 0644 0644 Mitchell Barragan MD, [facility] /EPI
== END 2021-11-21 15:15 | disposition home health service (06) | DRG 602 ==
LOC: M.ERS 15:23 → M.TBA-ER 17:13 → M.2W 17:13
PROVIDERS: Student in an Organized Health Care Education/Training Program; ADMIT Internal Medicine; ATTEND Internal Medicine
DX: L03.116 Cellulitis of left lower limb (principal); J18.9 Pneumonia, unspecified organism; R65.10 Systemic inflammatory response syndrome (SIRS) of non-infectious origin without acute organ dysfunction; J44.0 Chronic obstructive pulmonary disease with (acute) lower respiratory infection; Z20.822 Contact with and (suspected) exposure to COVID-19; E78.00 Pure hypercholesterolemia, unspecified; I50.9 Heart failure, unspecified; G47.33 Obstructive sleep apnea (adult) (pediatric); E03.9 Hypothyroidism, unspecified; G89.29 Other chronic pain; I11.0 Hypertensive heart disease with heart failure; M54.9 Dorsalgia, unspecified; E11.51 Type 2 diabetes mellitus with diabetic peripheral angiopathy without gangrene; Z79.4 Long term (current) use of insulin; Z86.711 Personal history of pulmonary embolism; Z87.891 Personal history of nicotine dependence